=== PATIENT | male | born 1995 | race African-American/Black ===

== ENCOUNTER 2018-03-30 13:30 | Emergency (ER) | payer SELFPAY ==
[2018-03-30 14:26] LABS: Absolute Lymphocytes (CBC) 1.7 K/uL (0.7-4.9); Absolute Monocytes 0.8 K/uL (0.1-1.3); Absolute Neutrophil 3.4 K/uL (1.8-8.0); Basophils % 0.5 % (0-1.3); Eosinophils % 2.4 % (0-4.4); Hematocrit 49.6 % (39.6-49.0); Lymphocytes % 28.1 % (15.3-44.8); MCH 28.3 pg (27.0-35.0); MCV 85.2 fL (80-100); Monocytes % 12.5 % (3.3-12.3); RBC Red Blood Cell Count 5.82 M/uL (4.33-5.43)
[2018-03-30 15:04] LABS: ALT/SGPT 59 U/L (12-78); AST/SGOT 40 U/L (15-37); Albumin 3.9 g/dL (3.4-5.0); Alkaline Phosphatase 91 U/L (45-117); BUN Blood Urea Nitrogen 13 mg/dL (7-18); Bicarbonate 30 mmol/L (21-32); Bilirubin Direct 0.2 mg/dL (0-0.2); Bilirubin Total 1.6 mg/dL (0.2-1.0); Glucose Level 82 mg/dL (74-106); Potassium 4.5 mmol/L (3.5-5.1); Protein, Total 8.3 g/dL (6.4-8.2); Sodium Level 141 mmol/L (136-145); Troponin (Emerg Dept Use Only) < 0.02 ng/mL (0.0-0.045)
--- NOTE | 2018-03-30 15:13 | EDPHYS ---
Physician Documentation [facility] Name: William Venegas Age: 22 yrs Sex: Male : 1995 Arrival Date: 03/30/2018 Time: 13:32 Bed 13 Private MD: ED Physician Devante Manzano HPI: 03/30 14:00 This 22 yrs old Black Male presents to ER via EMS with complaints of High Blood pm1 Pressure. 14:00 The patient has elevated blood pressure and discovered this At [facility]. Onset: The pm1 symptoms/episode began/occurred 8 day(s) ago. Modifying factors: The symptoms are aggravated by discontinuation of meds, blood pressure medication. Associated signs and symptoms: Pertinent positives: chest pain, Pertinent negatives: nausea, vomiting, shortness of breath. Severity of symptoms: in the emergency department the blood pressure is unchanged. The patient has experienced similar episodes in the past, multiple times. The patient has not recently seen a physician. Patient has not taken his blood pressure medications for the past 8 days. Patient has been in [facility] and was picked up by the EMS with complaints of chest pain and elevated blood pressure. Patient's current chest pain is 2/10 and midsternal. Historical: - Allergies: 13:34 No Known Allergies; sv - Home Meds: 13:34 Adderall XR Oral [Active]; Celexa Oral [Active]; Seroquel Oral [Active]; sv - PMHx: 13:34 Asthma; Hypertension; sv - Immunization history:: Adult Immunizations up to date. - Social history:: Smoking status: Patient uses tobacco products, smokes one-half pack cigarettes per day. - Ebola Screening: : No symptoms or risks identified at this time. ROS: 14:00 Constitutional: Negative for fever, chills, and weight loss, Eyes: Negative for injury, pm1 pain, redness, and discharge, ENT: Negative for injury, pain, and discharge, Neck: Negative for injury, pain, and swelling. 14:00 Respiratory: Negative for shortness of breath, cough, wheezing, and pleuritic chest pain, Abdomen/GI: Negative for abdominal pain, nausea, vomiting, diarrhea, and constipation, Back: Negative for injury and pain, : Negative for injury, bleeding, discharge, and swelling, MS/Extremity: Negative for injury and deformity, Skin: Negative for injury, rash, and discoloration, Neuro: Negative for headache, weakness, numbness, tingling, and seizure. 14:00 Cardiovascular: Positive for chest pain, Negative for edema, orthopnea, palpitations. Exam: 14:00 Constitutional: This is a well developed, well nourished patient who is awake, alert, pm1 and in no acute distress. Head/Face: Normocephalic, atraumatic. Eyes: Pupils equal round and reactive to light, extra-ocular motions intact. Lids and lashes normal. Conjunctiva and sclera are non-icteric and not injected. Cornea within normal limits. Periorbital areas with no swelling, redness, or edema. ENT: Nares patent. No nasal discharge, no septal abnormalities noted. Tympanic membranes are normal and external auditory canals are clear. Oropharynx with no redness, swelling, or masses, exudates, or evidence of obstruction, uvula midline. Mucous membranes moist. Neck: Trachea midline, no thyromegaly or masses palpated, and no cervical lymphadenopathy. Supple, full range of motion without nuchal rigidity, or vertebral point tenderness. No Meningismus. Chest/axilla: Normal chest wall appearance and motion. Nontender with no deformity. No lesions are appreciated. Cardiovascular: Regular rate and rhythm with a normal S1 and S2. No gallops, murmurs, or rubs. Normal PMI, no JVD. No pulse deficits. Respiratory: Lungs have equal breath sounds bilaterally, clear to auscultation and percussion. No rales, rhonchi or wheezes noted. No increased work of breathing, no retractions or nasal flaring. Abdomen/GI: Soft, non-tender, with normal bowel sounds. No distension or tympany. No guarding or rebound. No evidence of tenderness throughout. Back: No spinal tenderness. No costovertebral tenderness. Full range of motion. Skin: Warm, dry with normal turgor. Normal color with no rashes, no lesions, and no evidence of cellulitis. MS/ Extremity: Pulses equal, no cyanosis. Neurovascular intact. Full, normal range of motion. 14:00 Neuro: Orientation: is normal, Motor: is normal, moves all fours. Vital Signs: 13:35 BP 139 / 94; Pulse 73; Resp 16; Temp 98.9; Pulse Ox 98% ; Weight 106.59 kg; Height 6 sv ft. 6 in. (198.12 cm); Pain 2/10; 13:35 Body Mass Index 27.16 (106.59 kg, 198.12 cm) sv MDM: 13:44 Patient medically screened. pm1 15:10 Data reviewed: vital signs. Data interpreted: Pulse oximetry: on room air is 98 %. pm1 Interpretation: normal. 15:10 ED course: Patient not present in room to discuss lab results. Informed by nurse that pm1 patient eloped. 03/30 13:55 Order name: Basic Metabolic Panel; Complete Time: 15:09 pm1 03/30 13:55 Order name: CBC with Diff; Complete Time: 14:48 pm1 03/30 13:36 Order name: EKG; Complete Time: 13:36 sv 03/30 13:55 Order name: LFT's; Complete Time: 15:09 pm1 03/30 13:55 Order name: Troponin (emerg Dept Use Only); Complete Time: 15:09 pm1 03/30 13:55 Order name: XRAY Chest (1 view) pm1 03/30 13:36 Order name: EKG - Nurse/Tech; Complete Time: 13:47 sv 03/30 13:55 Order name: Cardiac monitoring; Complete Time: 13:57 pm1 03/30 13:55 Order name: IV Saline Lock; Complete Time: 13:57 pm1 03/30 13:55 Order name: Labs collected and sent; Complete Time: 13:57 pm1 03/30 13:55 Order name: O2 Per Protocol; Complete Time: 13:57 pm1 03/30 13:55 Order name: O2 Sat Monitoring; Complete Time: 13:57 pm1 Administered Medications: No medications were administered Disposition: 03/31 06:59 Co-signature as Attending Physician, Devante Manzano MD I agree with the assessment and yazmin plan of care. Disposition: 03/30/18 15:13 Patient left the facility after being seen by provider. Preliminary diagnosis are Chest pain, unspecified, Essential (primary) hypertension. - Patient left due to (see nurse's notes). - Condition is Undetermined. - Problem is new. - Symptoms have improved. Signatures: Dispatcher [employer] Gianna Elizondo RN RN sv Anderson, Corey, MD MD cha Munoz, Edgar, ALUMINUM POURER ALUMINUM POURER em Dandy Bradley, PICKING MACHINE OPERATOR HELPER PICKING MACHINE OPERATOR HELPER pm1 Corrections: (The following items were deleted from the chart) 03/30 15:34 13:55 Urine Dipstick-Ancillary ordered. pm1 em 15:39 15:13 03/30/2018 15:13 Patient left the facility after being seen by provider. em Preliminary diagnosis is Chest pain, unspecified; Essential (primary) hypertension. Reason stated they are leaving due to (see nurse's notes). Condition is Undetermined. Problem is new. Symptoms have improved. pm1
--- NOTE | 2018-03-30 15:13 | ER ---
Nurse's Notes [facility] Name: William Venegas Age: 22 yrs Sex: Male : 1995 Arrival Date: 03/30/2018 Time: 13:32 Bed 13 Private MD: Diagnosis: Chest pain, unspecified;Essential (primary) hypertension Presentation: 03/30 13:27 Presenting complaint: EMS states: picked up from [facility] after c/o HTN. BP on sv arrival 166/92 HR-78, on ER arrival BP 142/89 HR-77. Pt also c/o chest pressure since BP has been high. Pt reports being out of his unknown HTN meds. Transition of care: patient was not received from another setting of care. Onset of symptoms was March 30, 2018. Risk Assessment: Do you want to hurt yourself or someone else? Patient reports no desire to harm self or others. Initial Sepsis Screen: Does the patient meet any 2 criteria? No. Patient's initial sepsis screen is negative. Does the patient have a suspected source of infection? No. Patient's initial sepsis screen is negative. Care prior to arrival: None. 13:27 Method Of Arrival: EMS: [facility] sv 13:27 Acuity: JUAREZ 3 sv Historical: - Allergies: 13:34 No Known Allergies; sv - Home Meds: 13:34 Adderall XR Oral [Active]; Celexa Oral [Active]; Seroquel Oral [Active]; sv - PMHx: 13:34 Asthma; Hypertension; sv - Immunization history:: Adult Immunizations up to date. - Social history:: Smoking status: Patient uses tobacco products, smokes one-half pack cigarettes per day. - Ebola Screening: : No symptoms or risks identified at this time. Screenin:35 Abuse screen: Denies threats or abuse. Denies injuries from another. Nutritional sv screening: No deficits noted. Tuberculosis screening: No symptoms or risk factors identified. Fall Risk None identified. Assessment: 13:36 General: Appears in no apparent distress. comfortable, well developed, Behavior is sv calm, cooperative, appropriate for age. Pain: Complains of pain in chest Pain currently is 2 out of 10 on a pain scale. Quality of pain is described as pressure, Is intermittent. Neuro: Level of Consciousness is awake, alert, obeys commands, Oriented to person, place, time, situation, Moves all extremities. Full function Gait is steady, Speech is normal. Cardiovascular: Patient's skin is warm and dry. Respiratory: Respiratory effort is even, unlabored, Respiratory pattern is regular, symmetrical. Derm: Skin is pink, warm \\T\\ dry. 14:02 Reassessment: Patient appears in no apparent distress at this time. Patient and/or em family updated on plan of care and expected duration. Pain level reassessed. Patient is alert, oriented x 3, equal unlabored respirations, skin warm/dry/pink. rates pain 3/10. 14:50 Reassessment: Patient appears in no apparent distress at this time. pt asked to use the em phone at the nurses station, notified pt that needed UA, pt states, "you checking for drugs or what," pt notified it was protocol, pt was seen walking out through double doors, pt still had IV, provider notified, charge nurse notified, [place] [employer] notified. Vital Signs: 13:35 BP 139 / 94; Pulse 73; Resp 16; Temp 98.9; Pulse Ox 98% ; Weight 106.59 kg; Height 6 sv ft. 6 in. (198.12 cm); Pain 2/10; 13:35 Body Mass Index 27.16 (106.59 kg, 198.12 cm) sv ED Course: 13:32 Patient arrived in ED. sv 13:33 Triage completed. sv 13:35 Arm band placed on left wrist. sv 13:35 Patient has correct armband on for positive identification. Bed in low position. Pulse sv ox on. NIBP on. 13:36 Dandy Bradley NP is PHCP. pm1 13:36 Devante Manzano MD is Attending Physician. pm1 13:47 Luis Beltran LVN is Primary Nurse. em 14:18 Initial lab(s) drawn, by me, sent to lab. Inserted saline lock: 20 gauge in left mh5 antecubital area, using aseptic technique. Blood collected. 14:19 Placed in gown. Call light in reach. Side rails up X 1. 5 14:24 EKG done, by technology engineer. reviewed by Dandy Bradley NP. at1 14:35 XRAY Chest (1 view) In Process Unspecified. EDMS 14:35 X-ray completed. Portable x-ray completed in exam room. Patient tolerated procedure sw well. 15:38 No provider procedures requiring assistance completed. em Administered Medications: No medications were administered Outcome: 15:38 Eloped from patient exam room, after seeing physician Time discovered patient gone: em March 30, 2018 at 14:50 15:38 Condition: good 15:39 Patient left the ED. em Signatures: Dispatcher [employer] Gianna Elizondo RN RN sv Luis Beltran, NUCLEAR PLANT OPERATOR NUCLEAR PLANT OPERATOR em Miya Lamb, catalogue librarian EKG Tat1 Betina Mariee Patrick, NP TIRE WRAPPER pm1 Kirstin Blood [facility] Corrections: (The following items were deleted from the chart) 13:36 13:27 Presenting complaint: EMS states: picked up from [facility] after c/o HTN. BP on sv arrival 166/92 HR-78, on ER arrival BP 142/89 HR-77. Pt also c/o chest pressure since BP has been high. sv
--- NOTE | 2018-03-30 16:06 | EKG ---
Test Date: 2018-03-30 Test Time: 13:37:41 Financial Institution Treasurer: SHERRIE MEASUREMENT RESULTS: Intervals: Rate: 72 OH: 150 QRSD: 102 QT: 394 QTc: 431 [place]: P: 79 OH: 150 QRS: 89 T: 73 INTERPRETIVE STATEMENTS: Normal sinus rhythm Normal ECG No previous ECG available for comparison Electronically Signed On 03-30-18 16:05:56 CDT by Germán Rodriguez
--- NOTE | 2018-03-30 17:52 | RAD REPORT ---
EXAM DESCRIPTION: RAD - Chest Single View - 03/30/2018 2:34 pm CLINICAL HISTORY: CHEST PAIN Chest pain. COMPARISON: No comparisons FINDINGS: Portable technique limits examination quality. The lungs are grossly clear. The heart is normal in size. No displaced fractures. IMPRESSION: No acute intrathoracic process suspected.
== END 2018-03-30 15:39 | disposition left against medical advice (07) ==
LOC: ER 13:30 → EDBD 13:30 → ER 15:39
DX: I10 Essential (primary) hypertension (principal); F17.210 Nicotine dependence, cigarettes, uncomplicated
CPT/HCPCS: 36415; 71045; 80048; 80076; 84484; 85025; 93005; 99284